=== PATIENT | male | born 1950 | race Caucasian/White ===

== ENCOUNTER 2021-09-24 18:25 | Emergency (ER) | payer OTHER, MEDICARE ==
[~2021-09-24] VITALS: Ht 172.7 cm; Wt 100.0 kg
[2021-09-24] MEDS ORDERED: ADVIL200 MG PO (19:10)
[2021-09-24] MEDS ORDERED: PROVENTIL0.083 % IN (19:15)
[2021-09-24] MEDS ORDERED: ATORVASTATIN CA20 MG PO (19:17)
[2021-09-24] MEDS ORDERED: ASPIRINCHW 81MG PO (19:17)
[2021-09-24] MEDS ORDERED: B121000 MCG PO (19:19)
[2021-09-24] MEDS ORDERED: BROVANA15 MCG/2 M PO (19:20)
[2021-09-24] MEDS ORDERED: BUDESONID2 IN (19:21)
[2021-09-24] MEDS ORDERED: CETIRIZINE10 MG PO (19:22)
[2021-09-24] MEDS ORDERED: FUROSEMIDE20 MG PO (19:25)
[2021-09-24] MEDS ORDERED: CVS FLUTICASON50 MCG (19:25)
[2021-09-24] MEDS ORDERED: GALANTAMINE PO (19:26)
[2021-09-24] MEDS ORDERED: METOPROL TAR25 MG PO (19:27)
[2021-09-24] MEDS ORDERED: GLIPIZIDE ER2.5 MG PO (19:27)
[2021-09-24] MEDS ORDERED: MONTELUKAST SOD10 MG PO (19:27)
[2021-09-24] MEDS ORDERED: MUCINEX600 MG PO (19:28)
[2021-09-24] MEDS ORDERED: VITAMIN C1000 MG PO (19:29)
[2021-09-24] MEDS ORDERED: KLOR-CON M2020 MEQ PO (19:29)
[2021-09-24] MEDS ORDERED: YUPELRI175 MCG/3 PO (19:30)
[2021-09-24] MEDS ORDERED: LORTAB5 PO (20:43)
[2021-09-24 22:23] VITALS: BP 131/61
== END 2021-09-24 22:23 | disposition home or self-care (01) | DRG 563 ==
LOC: ED 18:25
DX: S82.142A Displaced bicondylar fracture of left tibia, initial encounter for closed fracture (principal); S81.812A Laceration without foreign body, left lower leg, initial encounter; S51.811A Laceration without foreign body of right forearm, initial encounter; I10 Essential (primary) hypertension; E11.9 Type 2 diabetes mellitus without complications; V59.40XA Driver of pick-up truck or van injured in collision with unspecified motor vehicles in traffic accident, initial encounter; Z79.84 Long term (current) use of oral hypoglycemic drugs
CPT/HCPCS: L1830